=== PATIENT | male | born 1985 | race Caucasian/White ===

== ENCOUNTER 2016-08-24 21:05 | Emergency (ER) | payer SELFPAY ==
[2016-08-24 21:44] VITALS: BP 153/99; PULSE 96; TEMP 97.8; BMI 52.0
[2016-08-24] MEDS ORDERED: ALBUTEROL SO4 2.5/IPRATROPIUM 0.5 INH SOL 3 ML VIAL.NEB. NEB ONE ×2 (22:14→23:07)
--- NOTE | 2016-08-24 22:14 | PDOC ---
History of Present Illness - General Chief Complaint: Respiratory Stated Complaint: SHORTNESS OF BREATH Time Seen by Provider: 08/24/16 22:12 History Source: Patient Exam Limitations: No Limitations - History of Present Illness Timing/Duration: reports: this morning Possible Cause: Yes: no prior episodes Past History - Travel Traveled outside of the country in the last 30 days: No Close contact w/someone who was outside of country & ill: No - Past Medical History Allergies/Adverse Reactions: Allergies Allergy/AdvReac Type Severity Reaction Status Date / Time No Known Allergies Allergy Unverified 08/24/16 21:40 Home Medications: Ambulatory Orders Azithromycin [Zithromax -] 250 mg PO UTDICT #6 tab 08/25/16 Ibuprofen 800 mg PO TID #30 tablet 08/25/16 Promethazine/Phenyleph/Codeine [Phenergan VC+Codeine Syrup] 5 ml PO TID #60 ml MDD 20 08/25/16 Pseudoephedrine HCl [Sudafed] 30 mg PO Q6H #30 tablet 08/25/16 Other medical history: denies - Immunization History Immunization Up to Date: Yes - Psycho/Social/Smoking Cessation Hx Suicidal Ideation: No Smoking History: Current some day smoker Number of Cigarettes Smoked Daily: 4 Information on smoking cessation initiated: No Hx Alcohol Use: No Drug/Substance Use Hx: No Substance Use Type: None Review of Systems - Review of Systems Able to Perform ROS?: Yes Comments:: 08/24/16 22:13 CONSTITUTIONAL: Absent: fever, chills, diaphoresis, generalized weakness, malaise, loss of appetite HEENT: +Sore throat Absent: rhinorrhea, nasal congestion, throat swelling, difficulty swallowing, mouth swelling, ear pain, eye pain, visual Changes CARDIOVASCULAR: Absent: chest pain, loss of consciousness, palpitations, irregular heart rate, peripheral edema RESPIRATORY: Absent: cough, shortness of breath, dyspnea with exertion, orthopnea, wheezing, stridor, hemoptysis GASTROINTESTINAL: Absent: abdominal pain, abdominal distension, nausea, vomiting, diarrhea, constipation, melena, hematochezia GENITOURINARY: Absent: dysuria, frequency, urgency, hesitancy, hematuria, flank pain, genital pain MUSCULOSKELETAL: Absent: myalgia, arthralgia, joint swelling SKIN: Absent: rash, itching, pallor HEMATOLOGIC/IMMUNOLOGIC: Absent: easy bleeding, easy bruising, lymphadenopathy, frequent infections ENDOCRINE: Absent: unexplained weight gain, unexplained weight loss, heat intolerance, cold intolerance NEUROLOGIC: Absent: headache, focal weakness or paresthesias, dizziness, unsteady gait, seizure, mental status changes, bladder or bowel incontinence PSYCHIATRIC: Absent: anxiety, depression, suicidal or homicidal ideation, hallucinations. Is the patient limited [place] proficient: No *Physical Exam - Vital Signs Last Vital Signs Temp Pulse Resp BP Pulse Ox 97.8 F 96 H 24 153/99 96 08/24/16 21:41 08/24/16 21:41 08/24/16 21:41 08/24/16 21:41 08/24/16 21:41 - Physical Exam Comments: 08/24/16 22:14 GENERAL: Well developed, well nourished. Awake and alert. No acute distress. HEENT: Normocephalic, atraumatic. PERRLA, EOMI. No conjunctival pallor. Sclera are non- icteric. Moist mucous membranes. Oropharynx is clear. NECK: Supple. Full ROM. No JVD. Carotid pulses 2+ and symmetric, without bruits. No thyromegaly. No lymphadenopathy. CARDIOVASCULAR: Regular rate and rhythm. No murmurs, rubs, or gallops. Distal pulses are 2+ and symmetric. PULMONARY: No evidence of respiratory distress. Lungs clear to auscultation bilaterally. No wheezing, rales or rhonchi. ABDOMINAL: Soft. Non-tender. Non-distended. No rebound or guarding. No organomegaly. Normoactive bowel sounds. MUSCULOSKELETAL Normal range of motion at all joints. No bony deformities or tenderness. No CVA tenderness. EXTREMITIES: No cyanosis. No clubbing. No edema. No calf tenderness. SKIN: Warm and dry. Normal capillary refill. No rashes. No jaundice. NEUROLOGICAL: Alert, awake, appropriate. Cranial nerves 2-12 intact. No deficits to light touch and temperature in face, upper extremities and lower extremities. No motor deficits in the in face, upper extremities and lower extremities. Normoreflexic in the upper and lower extremities. Normal speech. Toes are down- going bilaterally. Gait is normal without ataxia. PSYCHIATRIC: Cooperative. Good eye contact. Appropriate mood and affect. *DC/Admit/Observation/Transfer Diagnosis at time of Disposition: Upper respiratory infection - Discharge Dispostion Disposition: HOME Condition at time of disposition: Good - Prescriptions Prescriptions: Ibuprofen 800 mg PO TID #30 tablet Promethazine/Phenyleph/Codeine [Phenergan VC+Codeine Syrup] 5 ml PO TID #60 ml MDD 20 Pseudoephedrine HCl [Sudafed] 30 mg PO Q6H #30 tablet Azithromycin [Zithromax -] 250 mg PO UTDICT #6 tab - Patient Instructions Printed Discharge Instructions: DI for Viral Upper Respiratory Infection -- Adult - Post Discharge Activity Work/School Note: Back to Work
--- NOTE | 2016-08-24 22:42 | PDOC ---
*Physical Exam - Vital Signs Last Vital Signs Temp Pulse Resp BP Pulse Ox 97.8 F 96 H 24 153/99 96 08/24/16 21:41 08/24/16 21:41 08/24/16 21:41 08/24/16 21:41 08/24/16 21:41 Medical Decision Making - Medical Decision Making 08/24/16 22:41 agree with care from [facility] *DC/Admit/Observation/Transfer Diagnosis at time of Disposition: Upper respiratory infection Qualifiers: URI type: unspecified URI Qualified Code(s): J06.9 - Acute upper respiratory infection, unspecified - Discharge Dispostion Disposition: HOME Condition at time of disposition: Stable Admit: No - Patient Instructions Printed Discharge Instructions: DI for Viral Upper Respiratory Infection -- Adult - Post Discharge Activity Work/School Note: Back to Work
[2016-08-25] MEDS ORDERED: PSEUDOEPHEDRINE HCL 30 MG TABLET PO STA (01:37)
[2016-08-25] MEDS ORDERED: AZITHROMYCIN 250 MG TABLET (FP) PO STA (01:37)
[2016-08-25] MEDS ORDERED: IBUPROFEN 400 MG TABLET (FP) PO ONE ×2 (01:38→01:43)
[2016-08-25] MEDS ORDERED: PSEUDOEPHEDRINE HCL 60 MG TABLET ONE (01:42)
[2016-08-25] MEDS ORDERED: AZITHROMYCIN 250 MG TABLET (FP) ONE (01:43)
== END 2016-08-25 02:16 | disposition home or self-care (01) ==
LOC: JER 21:05 → JERFT 21:05 → JER 08-25 02:16
PROC: 3E0F7GC Introduction of Other Therapeutic Substance into Respiratory Tract, Via Natural or Artificial Opening (ICD-10-PCS; principal; 2016-08-24)
DX: J06.9 Acute upper respiratory infection, unspecified (principal); B97.89 Other viral agents as the cause of diseases classified elsewhere
CPT/HCPCS: 71020-TC; 87070; 87430; 99281-25

== ENCOUNTER 2016-11-06 04:55 | Emergency (ER) | payer SELFPAY ==
[2016-11-06 05:23] VITALS: BP 133/95; PULSE 124; TEMP 97.6; BMI 51.6
[2016-11-06] MEDS ORDERED: PENICILLIN V POTASSIUM 500 MG TABLET PO ONE (05:31)
[2016-11-06] MEDS ORDERED: TETANUS AND DIPHTHERIA TOXOID 0.5 ML DISP.SYRIN IM ONE (05:31)
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
[2016-11-06] MEDS ORDERED: OXYCODONE/APAP 5/325MG COMBO TABLET PO ONE (06:01)
[2016-11-06] MEDS ORDERED: OXYCODONE/APAP 5/325MG COMBO TABLET ONE (06:06)
== END 2016-11-06 06:11 | disposition home or self-care (01) ==
LOC: JER 04:55
PROC: 0CQ0XZZ Repair Upper Lip, External Approach (ICD-10-PCS; principal; 2016-11-06)
PROC: 3E0234Z Introduction of Serum, Toxoid and Vaccine into Muscle, Percutaneous Approach (ICD-10-PCS; 2016-11-06)
DX: S01.521A Laceration with foreign body of lip, initial encounter (principal); Y04.2XXA Assault by strike against or bumped into by another person, initial encounter; Y93.89 Activity, other specified; Y92.89 Other specified places as the place of occurrence of the external cause; Y99.8 Other external cause status; Y07.9 Unspecified perpetrator of maltreatment and neglect
CPT/HCPCS: 99283-25

== ENCOUNTER 2016-11-13 11:40 | Emergency (ER) | payer SELFPAY ==
[2016-11-13 11:43] VITALS: BP 133/75; PULSE 105; TEMP 98.3; BMI 51.6
--- NOTE | 2016-11-13 12:06 | PDOC ---
Suture Removal/Wound Check HPI - History of Present Illness Chief Complaint: Suture/Staple Removal(Here) Stated Complaint: SUTURE REMOVAL Time Seen by Provider: 11/13/16 11:59 History Source: Yes: Patient Exam Limitations: Yes: No Limitations [facility] Date of Last ED visit: 11/06/16 - Previous ED Treatment Type of procedure performed on last visit: Yes: Laceration Repair Tetanus Immunization: Yes: Up to Date Antibiotics Prescribed: Yes Past History - Past Medical History Allergies/Adverse Reactions: Allergies No Known Allergies Allergy (Verified 11/13/16 11:40) Home Medications: Ambulatory Orders NK [No Known Home Medication] 11/06/16 Oxycodone HCl/Acetaminophen [Percocet 5-325 mg Tablet] 1 - 2 tab PO Q6H #20 tablet MDD 4 11/06/16 Penicillin V Potassium [Pen Vee K -] 500 mg PO TID #30 tablet 11/06/16 General: Yes: no pertinent history - Immunization History Immunizations Up to Date: Yes - Social History Smoking Status: Current some day smoker Number of Ciarettes Per Day: 2 Suture Removal/Wound Check PE - Physical Exam Laceration/Wound Check Symptoms: reports: None Comments: 11/13/16 12:08 left upper lip laceration well healed, 2 sutures intact *Review of Systems - Review of Systems Able to Perform ROS?: Yes Procedures - Additional Procedures Progress: 11/13/16 12:09 2 simple interrupted sutures removed, 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
== END 2016-11-13 12:14 | disposition home or self-care (01) ==
LOC: JERFT 11:40
DX: Z48.02 Encounter for removal of sutures (principal)
CPT/HCPCS: 99281-25

== ENCOUNTER 2017-07-05 02:49 | Emergency (ER) | payer SELFPAY ==
[2017-07-05 03:11] VITALS: BP 184/113; PULSE 110; TEMP 98; BMI 49.9
[2017-07-05] MEDS ORDERED: KETOROLAC TROMETHAMINE 30 MG/1 ML VIAL IM ONE (03:26)
--- NOTE | 2017-07-05 03:26 | PDOC ---
History of Present Illness - General Chief Complaint: Pain Stated Complaint: PAIN & SWELLING RIGHT KNEE Time Seen by Provider: 07/05/17 03:13 History Source: Patient - History of Present Illness Initial Comments: 07/05/17 03:44 31 year old morbidly obese male c/o right knee pain x 1 day with worsening pain and no relief with advil. reports 1 month ago feeling a pinch while walking down the stairs. patient is now worse and patient has noticed varicose veins. Past History - Past Medical History Allergies/Adverse Reactions: Allergies Allergy/AdvReac Type Severity Reaction Status Date / Time No Known Allergies Allergy Verified 07/05/17 03:08 Home Medications: Ambulatory Orders Ibuprofen 600 mg PO QID PRN #20 tablet 07/05/17 Oxycodone HCl/Acetaminophen [Percocet 5-325 mg Tablet] 1 - 2 tab PO Q6H PRN #10 tablet MDD 4 07/05/17 COPD: No Diabetes: Yes (BORDER LINE) - Immunization History Immunization Up to Date: Yes - Suicide/Smoking/Psychosocial Hx Smoking History: Current some day smoker Have you smoked in the past 12 months: Yes Number of Cigarettes Smoked Daily: 2 Information on smoking cessation initiated: No Hx Alcohol Use: No Drug/Substance Use Hx: No Substance Use Type: None Review of Systems - Review of Systems Able to Perform ROS?: Yes Is the patient limited [place] proficient: No Musculoskeletal: Yes: Joint Swelling (right knee) *Physical Exam - Vital Signs Last Vital Signs Temp Pulse Resp BP Pulse Ox 98 F 110 H 22 184/113 99 07/05/17 03:09 07/05/17 03:09 07/05/17 03:09 07/05/17 03:09 07/05/17 03:09 - Physical Exam General Appearance: Yes: Appropriately Dressed Respiratory/Chest: positive: Lungs Clear, Normal Breath Sounds Cardiovascular: positive: Regular Rhythm, Regular Rate Gastrointestinal/Abdominal: positive: Normal Bowel Sounds, Soft Musculoskeletal: positive: Other (right knee swollen with warmth to touch. limited ROM. uable to weight bear with paoj ) Extremity: positive: Other (+ pedal pulse) Integumentary: positive: Normal Color, Dry, Warm Progress Note - Progress Note Progress Note: Right knee pain P: pain management. xray: negative. official read pending *DC/Admit/Observation/Transfer Diagnosis at time of Disposition: Right knee pain Qualifiers: Chronicity: acute Qualified Code(s): M25.561 - Pain in right knee Joint effusion of knee Qualifiers: Laterality: right Qualified Code(s): M25.461 - Effusion, right knee - Discharge Dispostion Disposition: HOME - Prescriptions Prescriptions: Ibuprofen 600 mg PO QID PRN #20 tablet PRN Reason: Mild Pain Oxycodone HCl/Acetaminophen [Percocet 5-325 mg Tablet] 1 - 2 tab PO Q6H PRN #10 tablet MDD 4 PRN Reason: Moderate Pain - Referrals - Patient Instructions Printed Discharge Instructions: DI for Knee Pain Additional Instructions: follow up with orthopedic doctor as soon as possible. take ibuprofen every 6 hours as needed for pain take percocet every 6 hours as needed for severe pain - Post Discharge Activity Forms/Work/School Notes: Back to Work
[2017-07-05] MEDS ORDERED: KETOROLAC TROMETHAMINE 30 MG/1 ML VIAL ONE (03:28)
== END 2017-07-05 05:01 | disposition home or self-care (01) ==
LOC: JER 02:49
PROC: 3E0233Z Introduction of Anti-inflammatory into Muscle, Percutaneous Approach (ICD-10-PCS; principal; 2017-07-05)
DX: M25.461 Effusion, right knee (principal); E11.9 Type 2 diabetes mellitus without complications; E66.01 Morbid (severe) obesity due to excess calories; Z68.42 Body mass index [BMI] 45.0-49.9, adult; F17.210 Nicotine dependence, cigarettes, uncomplicated
CPT/HCPCS: 73560-TC-RT-FY; 99282-25

== ENCOUNTER 2019-03-22 09:28 | Inpatient (IN) | payer OTHER ==
[2019-03-22 10:07] VITALS: BMI 56.7
--- NOTE | 2019-03-22 10:41 | HP ---
CIWA Score Nausea/Vomitin-No Nausea/No Vomiting Muscle Tremors: 3 Anxiety: 3 Agitation: 4-Moderately Restless Paroxysmal Sweats: 1-Minimal Palms Moist Orientation: 2-Disoriented Date<2 days Tacttile Disturbances: 0-None Auditory Disturbances: 0-None Visual Disturbances: 0-None Headache: 0-None Present CIWA-Ar Total Score: 13 - Admission Criteria OASAS Guidelines: Admission for Medically Managed Detox: Requires at least one of the followin. CIWA greater than 12 2. Seizures within the past 24 hours 3. Delirium tremens within the past 24 hours 4. Hallucinations within the past 24 hours 5. Acute intervention needed for co occurring medical disorder 6. Acute intervention needed for co occurring psychiatric disorder 7. Severe withdrawal that cannot be handled at a lower level of care (continued vomiting, continued diarrhea, abnormal vital signs) requiring intravenous medication and/or fluids 8. Admitting History and Physical - Admission Chief Complaint: "I want to be here because I am 33 and alcohol shortens my life and says something about a man before someone says something. I am at the point of my life where I want to do something." History of Present Illness: 33 year old male due to alcohol dependence with withdrawals. He is drinking binge he 16 18 oz beers per day, or liter of [place]. He binged from Wednesday to Wednesday. Seen ER at [facility] on Wednesday due to alcohol intoxication, having cold sweats, shakes to the point of possible seizures, and given some librium which helped somewhat. However, he is still having withdrawal symptoms. Patient smokes ciggarettes too but quit cold turkey on Wednesday. He wishes to enter detox and then follow up with outpatient treatment. He took oxycodone 3 days for knee pain which he took from mother. PMH: Insomnia is secondary to withdrawal Psurg: Umbilical Herniorrhaphy 2016. Med: None All: None Patient has support systems in place once he completes detox. History Source: Patient Limitations to Obtaining History: No Limitations - Past Medical History Cardiovascular: Yes: HTN Additional Past Medical History: Obesity - Smoking History Smoking history: Former smoker Have you smoked in the past 12 months: No Aproximately how many cigarettes per day: 5 If you are a former smoker, when did you quit?: 03/10/2019 - Alcohol/Substance Use Hx Alcohol Use: Yes (binged for many days and suddenly stopped) Number of Drinks Daily: 10 Date of Last Use: 03/20/19 - Social History Usual Living Arrangement: Yes: Alone Do you think of yourself as: Straight/Heterosexual ADL: Independent Occupation: security History of Recent Travel: Yes Admission [facility] Allergies/Adverse Reactions: Allergies Allergy/AdvReac Type Severity Reaction Status Date / Time No Known Allergies Allergy Verified 03/22/19 09:53 - Ebola screening Have you traveled outside of the country in the last 21 days: No Have you had contact with anyone from an Ebola affected area: No Do you have a fever: No - Review of Systems Constitutional: Chills, Diaphoresis EENT: reports: No Symptoms Reported Respiratory: reports: No Symptoms reported Cardiac: reports: No Symptoms Reported GI: reports: No Symptoms Reported : reports: No Symptoms Reported Musculoskeletal: reports: No Symptoms Reported Integumentary: reports: No Symptoms Reported Neuro: reports: No Symptoms reported, Other (dementia unknown cause) Endocrine: reports: No Symptoms Reported Hematology: reports: No Symptoms Reported Psychiatric: reports: No Sypmtoms Reported, Judgement Intact, Mood/Affect Appropiate, Orientated x3 Other Systems: Reviewed and Negative Patient History - Patient Medical History Hx Anemia: No Hx Asthma: No Hx Chronic Obstructive Pulmonary Disease (COPD): No Hx Cancer: No Hx Cardiac Disorders: No Hx Congestive Heart Failure: No Hx Hypertension: Yes Hx Hypercholesterolemia: No Hx Pacemaker: No HX Cerebrovascular Accident: No Hx Seizures: No Hx Dementia: Yes (unknown cause familial) Hx Diabetes: Yes (BORDER LINE) Hx Gastrointestinal Disorders: No Hx Liver Disease: No Hx Genitourinary Disorders: No Hx Sexually Transmitted Disorders: No Hx Renal Disease (ESRD): No Hx Thyroid Disease: No Hx Human Immunodeficiency Virus (HIV): No Hx Hepatitis C: No Hx Depression: No Hx Suicide Attempt: No Hx Bipolar Disorder: No Hx Schizophrenia: No - Patient Surgical History Past Surgical History: No - PPD History Previous Implant?: Yes Documented Results: Negative w/o proof Implanted On Prior [facility] Admission?: Yes Date: 04/05/14 Results: negative PPD to be Administered?: Yes - Smoking Cessation Smoking history: Former smoker Have you smoked in the past 12 months: No Aproximately how many cigarettes per day: 5 If you are a former smoker, when did you quit?: 03/10/2019 Hx Chewing Tobacco Use: No Initiated information on smoking cessation: Yes 'Breaking Loose' booklet given: 03/22/19 - Substances abused Alcohol Other (specify): Was in [facility] being given librium for acute intoxication Substance route: Oral Frequency: Daily (most recently binged for many days straight prior to ER visit) Amount used: 16 bottles of 18oz Age of first use: 11 Date of last use: 03/18/19 Admission Physical Exam S - Vital Signs Vital Signs: Vital Signs - 24 hr 03/22/19 09:58 Temperature 98.4 F Pulse Rate 84 Respiratory 19 Rate Blood Pressure 143/94 - Physical General Appearance: Yes: Moderate Distress, Tremorous, Irritable, Sweating, Anxious HEENTM: Yes: EOMI, Normal ENT Inspection, Normocephalic, Normal Voice, SAGAR, Pharynx Normal, Tm's normal Respiratory: Yes: Chest Non-Tender, Lungs Clear, Normal Breath Sounds, No Respiratory Distress, No Accessory Muscle Use Neck: Yes: No masses,lesions,Nodules, Supple, Trachea in good position Breast: Yes: Within Normal Limits Cardiology: Yes: Regular Rhythm, S1, S2, Tachycardia Abdominal: Yes: Normal Bowel Sounds, Non Tender, Soft, Protuberent Genitourinary: Yes: Within Normal Limits Back: Yes: Normal Inspection Musculoskeletal: Yes: full range of Motion, Gait Steady, Pelvis Stable Extremities: Yes: Normal Capillary Refill, Normal Inspection, Normal Range of Motion, Non-Tender Neurological: Yes: financial reporting director II-XII NML intact, Fully Oriented, Alert, Motor Strength 5/5, Normal Mood/Affect, Normal Response Integumentary: Yes: Normal Color, Warm Lymphatic: Yes: Within Normal Limits - Diagnostic (1) Dementia associated with alcoholism Current Visit: Yes Status: Acute (2) Alcohol withdrawal Current Visit: Yes Status: Acute Qualifiers: Complication of substance-induced condition: uncomplicated Qualified Code(s ): F10.230 - Alcohol dependence with withdrawal, uncomplicated (3) Umbilical hernia Current Visit: No Status: Acute Qualifiers: Obstruction and gangrene presence: without obstruction or gangrene Qualified Code(s): K42.9 - Umbilical hernia without obstruction or gangrene (4) Obesity (BMI 30-39.9) Current Visit: Yes Status: Acute (5) Hypertension Current Visit: Yes Status: Acute Cleared for Admission [facility] - Detox or Rehab [facility] Level of Care: Medically Managed Detox Regimen/Protocol: Librium Claeared for Rehab Admission: No Screened but not Admitted - Documentation of Visit Screened but not Admitted: No Inpatient Rehab Admission - Rehab Decision to Admit Inpatient rehab admission?: No
[2019-03-22] MEDS ORDERED: MAGNESIUM CITRATE 300 ML BOTTLE PO PRN (10:51)
[2019-03-22] MEDS ORDERED: IBUPROFEN 400 MG TABLET (FP) PO PRN (10:51)
[2019-03-22] MEDS ORDERED: BISMUTH SUBSALICYLATE 262 MG/15 ML BTL PO PRN (10:51)
[2019-03-22] MEDS ORDERED: MAGNESIUM HYDROX 2400MG/30ML ORAL SUSPENSION 30 ML CUP PO PRN (10:51)
[2019-03-22] MEDS ORDERED: MENTHOL/PHENOL 1 EACH UD MM PRN (10:51)
[2019-03-22] MEDS ORDERED: ACETAMINOPHEN 325 MG TABLET (FP) PO PRN ×2 (10:51)
[2019-03-22] MEDS: chlordiazePOXIDE HCL 25 MG CAPSULE PO SCH ×3 (12:19→22:11)
[2019-03-22] MEDS: chlordiazePOXIDE HCL 25 MG CAPSULE PO PRN (13:56)
[2019-03-22] MEDS: hydrOXYzine PAMOATE 25 MG CAPSULE (FP) PO PRN (17:19)
[2019-03-22] MEDS: cloNIDine HCL 0.1 MG TABLET PO SCH (18:45)
[2019-03-22] MEDS: THIAMINE HCL 100 MG TABLET (FP) PO SCH (22:11)
[2019-03-22] MEDS: MELATONIN 5 MG TABLETS PO PRN (22:12)
[2019-03-22] MEDS: MAG HYDROX/AL HYDROX/SIMETH 30 ML UNIT-DOSE CUP PO PRN (23:14)
[2019-03-22] MEDS: SUVOREXANT 20 MG TABLET PO PRN (23:26)
[2019-03-23] MEDS: hydrOXYzine PAMOATE 25 MG CAPSULE (FP) PO PRN ×4 (00:50→22:15)
[2019-03-23] MEDS: METHOCARBAMOL 500 MG TABLET PO PRN ×2 (00:50→07:34)
[2019-03-23] MEDS: chlordiazePOXIDE HCL 25 MG CAPSULE PO PRN ×3 (00:51→18:47)
[2019-03-23] MEDS: chlordiazePOXIDE HCL 25 MG CAPSULE PO SCH ×4 (05:24→22:11)
[2019-03-23] MEDS: PRENATAL VITAMINS W/ FOLIC ACID TABLET (FP) PO SCH (10:35)
[2019-03-23] MEDS: NICOTINE 7 MG/24 HOURS TOPICAL PATCH TD SCH (10:35)
[2019-03-23] MEDS: cloNIDine HCL 0.1 MG TABLET PO SCH (10:36)
--- NOTE | 2019-03-23 11:02 | PN ---
S CIWA - CIWA Score Nausea/Vomitin-Mild Nausea/No Vomiting Muscle Tremors: 3 Anxiety: 2 Agitation: 3 Paroxysmal Sweats: 2 Orientation: 0-Oriented Tacttile Disturbances: 0-None Auditory Disturbances: 1-Very Mild Visual Disturbances: 0-None Headache: 0-None Present CIWA-Ar Total Score: 12 [facility] Progress Note (SOAP) Subjective: 33 years old male admitted on 03/22/19 for alcohol withdrawal sxs management treated with librium detox regimen requests to be seen by a psychiatrist due to taking zoloft for depression would like to resume zoloft Objective: 03/23/19 11:02 Vital Signs Temperature 96.6 F L 03/23/19 09:10 Pulse Rate 109 H 03/23/19 09:10 Respiratory Rate 18 03/23/19 09:10 Blood Pressure 133/73 03/23/19 09:10 O2 Sat by Pulse Oximetry (%) Assessment: 03/23/19 11:05 alcohol withdrawal sx Plan: continue librium detox regimen
[2019-03-23] MEDS: THIAMINE HCL 100 MG TABLET (FP) PO SCH (22:11)
[2019-03-23] MEDS: SUVOREXANT 20 MG TABLET PO PRN (22:12)
[2019-03-23] MEDS: MELATONIN 5 MG TABLETS PO PRN (22:16)
[2019-03-24] MEDS: hydrOXYzine PAMOATE 25 MG CAPSULE (FP) PO PRN (03:48)
[2019-03-24] MEDS: chlordiazePOXIDE HCL 25 MG CAPSULE PO SCH ×4 (06:22→22:15)
[2019-03-24] MEDS: NICOTINE 7 MG/24 HOURS TOPICAL PATCH TD SCH (10:20)
[2019-03-24] MEDS: PRENATAL VITAMINS W/ FOLIC ACID TABLET (FP) PO SCH (10:21)
[2019-03-24] MEDS: cloNIDine HCL 0.1 MG TABLET PO SCH (10:21)
--- NOTE | 2019-03-24 15:26 | PN ---
S CIWA - CIWA Score Nausea/Vomitin-Mild Nausea/No Vomiting Muscle Tremors: 1-None Visible, but [place] Anxiety: 2 Agitation: 2 Paroxysmal Sweats: No Perspiration Orientation: 0-Oriented Tacttile Disturbances: 1-Very Mild Itch/Numbness Auditory Disturbances: 0-None Visual Disturbances: 0-None Headache: 1-Very Mild CIWA-Ar Total Score: 8 BHS Progress Note (SOAP) Subjective: alert,irritable,anxious,interrupted sleep,tremor Objective: 03/24/19 15:25 Vital Signs Temperature 96.3 F L 03/24/19 13:22 Pulse Rate 92 H 03/24/19 13:22 Respiratory Rate 18 03/24/19 13:22 Blood Pressure 139/86 03/24/19 13:22 O2 Sat by Pulse Oximetry (%) labs pending Assessment: 03/24/19 15:25 withdrawal symptom Plan: continue detox librium regimen
[2019-03-24] MEDS: MAG HYDROX/AL HYDROX/SIMETH 30 ML UNIT-DOSE CUP PO PRN (15:45)
[2019-03-24] MEDS: SUVOREXANT 20 MG TABLET PO PRN (22:17)
[2019-03-24] MEDS: MELATONIN 5 MG TABLETS PO PRN (22:17)
[2019-03-24] MEDS: METHOCARBAMOL 500 MG TABLET PO PRN (22:17)
[2019-03-24] MEDS: THIAMINE HCL 100 MG TABLET (FP) PO SCH (22:17)
[2019-03-25] MEDS: MAG HYDROX/AL HYDROX/SIMETH 30 ML UNIT-DOSE CUP PO PRN ×2 (00:29→20:09)
[2019-03-25] MEDS: hydrOXYzine PAMOATE 25 MG CAPSULE (FP) PO PRN ×3 (01:41→17:48)
[2019-03-25] MEDS: chlordiazePOXIDE HCL 10 MG CAPSULE PO PRN ×3 (01:41→22:03)
[2019-03-25] MEDS: chlordiazePOXIDE HCL 10 MG CAPSULE PO SCH ×4 (06:43→22:01)
[2019-03-25] MEDS: METHOCARBAMOL 500 MG TABLET PO PRN (06:43)
[2019-03-25] MEDS: cloNIDine HCL 0.1 MG TABLET PO SCH (10:33)
[2019-03-25] MEDS: NICOTINE 7 MG/24 HOURS TOPICAL PATCH TD SCH (10:34)
[2019-03-25] MEDS: PRENATAL VITAMINS W/ FOLIC ACID TABLET (FP) PO SCH (10:34)
--- NOTE | 2019-03-25 13:41 | PN ---
BHS CIWA - CIWA Score Nausea/Vomitin-No Nausea/No Vomiting Muscle Tremors: None Anxiety: 2 Agitation: 0-Normal Activity Paroxysmal Sweats: 3 Orientation: 0-Oriented Tacttile Disturbances: 0-None Auditory Disturbances: 0-None Visual Disturbances: 0-None Headache: 1-Very Mild CIWA-Ar Total Score: 6 BHS Progress Note (SOAP) Subjective: c/o headache, anxiety, and sweats. Objective: 03/25/19 13:41 Vital Signs 03/25/19 03/25/19 03/25/19 06:17 08:04 09:40 Temperature 96.2 F L 96.4 F L Pulse Rate 93 H 93 H 95 H Respiratory 20 18 Rate Blood Pressure 165/95 159/96 161/99 03/25/19 13:20 Temperature 97.3 F L Pulse Rate 87 Respiratory 18 Rate Blood Pressure 160/99 Assessment: 03/25/19 13:41 AOX3, in no acute respiratory distress. Full rom, ambulating in the unit. Withdrawal symptoms. Plan: continue detox.
[2019-03-25] MEDS: MELATONIN 5 MG TABLETS PO PRN (22:01)
[2019-03-25] MEDS: THIAMINE HCL 100 MG TABLET (FP) PO SCH (22:01)
[2019-03-26] MEDS: METHOCARBAMOL 500 MG TABLET PO PRN ×2 (01:57→10:41)
[2019-03-26] MEDS: hydrOXYzine PAMOATE 25 MG CAPSULE (FP) PO PRN ×3 (01:57→23:10)
[2019-03-26] MEDS: chlordiazePOXIDE HCL 10 MG CAPSULE PO SCH ×2 (05:38→17:49)
[2019-03-26] MEDS: cloNIDine HCL 0.1 MG TABLET PO SCH (10:41)
[2019-03-26] MEDS: PRENATAL VITAMINS W/ FOLIC ACID TABLET (FP) PO SCH (10:41)
[2019-03-26] MEDS: NICOTINE 7 MG/24 HOURS TOPICAL PATCH TD SCH (10:41)
--- NOTE | 2019-03-26 14:12 | PN ---
S CIWA - CIWA Score Nausea/Vomitin-No Nausea/No Vomiting Muscle Tremors: 1-None Visible, but [place] Anxiety: 1-Mildly Anxious Agitation: 1-Slight > Activity Paroxysmal Sweats: No Perspiration Orientation: 0-Oriented Tacttile Disturbances: 0-None Auditory Disturbances: 0-None Visual Disturbances: 0-None Headache: 0-None Present CIWA-Ar Total Score: 3 BHS Progress Note (SOAP) Subjective: 33 years old male admitted on 03/22/19 for alcohol withdrawal sx management treated with libirum detox regimen feeling better less tremor sleep better at night Objective: 03/26/19 14:12 Vital Signs Temperature 99.0 F 03/26/19 13:13 Pulse Rate 98 H 03/26/19 13:13 Respiratory Rate 18 03/26/19 13:13 Blood Pressure 150/90 03/26/19 13:13 O2 Sat by Pulse Oximetry (%) 03/26/19 14:14 lab see ER 03/26/19 14:14 03/22/19 lab report 03/26/19 14:16 bp elevation add amlodipine Assessment: 03/26/19 14:16 alcohol withdrawal sx Plan: continue librium detox regimen
[2019-03-26] MEDS: amLODIPine BESYLATE 5 MG TABLET (FP) PO SCH (15:02)
[2019-03-26] MEDS: MELATONIN 5 MG TABLETS PO PRN (21:54)
[2019-03-26] MEDS: THIAMINE HCL 100 MG TABLET (FP) PO SCH (21:54)
[2019-03-27] MEDS ORDERED: chlordiazePOXIDE HCL 10 MG CAPSULE PO ONE (05:00)
[2019-03-27] MEDS: hydrOXYzine PAMOATE 25 MG CAPSULE (FP) PO PRN (05:57)
[2019-03-27] MEDS: cloNIDine HCL 0.1 MG TABLET PO SCH (10:27)
[2019-03-27] MEDS: PRENATAL VITAMINS W/ FOLIC ACID TABLET (FP) PO SCH (10:27)
[2019-03-27] MEDS: amLODIPine BESYLATE 5 MG TABLET (FP) PO SCH (10:27)
[2019-03-27] MEDS: NICOTINE 7 MG/24 HOURS TOPICAL PATCH TD SCH (10:28)
[2019-03-27 14:44] VITALS: BP 139/69; PULSE 94; TEMP 98.8
--- NOTE | 2019-03-27 15:44 | HP ---
[facility] Rehab Assess/Revision - Admission History Admitted to Rehab from: [facility] Date of Admission to Rehab: 03/27/19 - Vital signs Vital Signs: Vital Signs Period Temp Pulse Resp BP Sys/Cam Pulse Ox Last 24 Hr 96.5 F-98.8 F 71-101 18-20 124-160/69-102 - Findings Detox History & Physical reviewed: Yes Concur with findings: Yes Comments/Additional Findings: transferred from detox to rehab admission as per protocol Inpatient Rehab Admission - Rehab Decision to Admit Inpatient rehab admission?: Yes - Initial Determination Are CD services needed?: Yes Free of communicable disease: Yes Not in need of hospitalization: Yes - Rehab Admission Criteria Previous failed treatment: Yes Poor recovery environment: Yes Comorbidities: Yes Lacks judgement: Yes Patient is meeting Inpatient Rehab admission criteria:: Yes
--- NOTE | 2019-03-27 15:59 | DS ---
[facility] Rehab Discharge Summary - [facility] Rehab Discharge Summary Admission Date: 03/22/19 Discharge Date: 03/27/19 - History Present History: Alcohol dependence Additional Comments: Pt is a 33 y/o male who was transferred to rehab from [address] [place] [address] after completion. Pertinent Past History: HTN Umbilcal Hernia Knee pain Obesity - Discharge Physical Exam Vital Signs: Vital Signs Temperature 98.8 F 03/27/19 14:43 Pulse Rate 94 H 03/27/19 14:43 Respiratory Rate 20 03/27/19 14:43 Blood Pressure 139/69 03/27/19 14:43 O2 Sat by Pulse Oximetry (%) Alert o x 3,denies s/h/i nad Ambulating with steady gait. Pertinent Admission Physical Exam Findings: Unchanged status - Treatment Discharge Condition: Discharge condition good Hospital Course: Pt completed detox today and was transferred to rehab but declined to stay for personal family reasons. - Medication-Assisted Treatment (MAT) Medication-Assisted Treatment (MAT): No - Discharge Instructions Diet, activity, other medical instructions: Diet:JESUS Activity: oob ad kee Other medical instructions:follow up with primary care [facility] within 1 week after discharge. Follow up [facility]. - Diagnosis (1) Alcohol withdrawal Current Visit: Yes Status: Chronic Qualifiers: Complication of substance-induced condition: uncomplicated Qualified Code(s ): F10.230 - Alcohol dependence with withdrawal, uncomplicated (2) Hypertension Current Visit: Yes Status: Chronic Qualifiers: Hypertension type: essential hypertension Qualified Code(s): I10 - Essential (primary) hypertension (3) Obesity (BMI 30-39.9) Current Visit: Yes Status: Chronic - Follow-up Referral Minutes to complete discharge: 10 - AMA Did Patient Leave Against Medical Advice: No Additional Comments: Pt requests to leave voluntarily immediately after coming to rehab unit without getting into his assigned room yet.
--- NOTE | 2019-03-27 16:30 | PN ---
S Progress Note Note: received 5n nurse called that the patient refuses to stay in rehab amlodipine sent to preferred pharmacy strong recommend weight loss low salt diet and follow up with primary care provider recommend community health services such as mini clinic and pharmacy for bp monitoring risks of uncontrolled bp
== END 2019-03-27 16:15 | disposition home or self-care (01) | DRG 895 ==
LOC: YASAS 09:28 → Y3N 11:12 → Y5N 03-27 15:21
PROVIDERS: ADMIT Allergy & Immunology; ATTEND Neuromusculoskeletal Medicine & OMM
PROC: HZ42ZZZ Group Counseling for Substance Abuse Treatment, Cognitive-Behavioral (ICD-10-PCS; principal; 2019-03-22)
DX: F10.20 Alcohol dependence, uncomplicated (principal); Z68.43 Body mass index [BMI] 50.0-59.9, adult; I10 Essential (primary) hypertension; E11.9 Type 2 diabetes mellitus without complications; K42.9 Umbilical hernia without obstruction or gangrene; F10.27 Alcohol dependence with alcohol-induced persisting dementia; M25.561 Pain in right knee; Z87.891 Personal history of nicotine dependence; E66.01 Morbid (severe) obesity due to excess calories
CPT/HCPCS: 36415; 80053; 80307; 85027; 86593; 93005; 93010; 99284-25; J0735

== ENCOUNTER 2023-02-15 18:27 | Inpatient (IN) | payer OTHER ==
[2023-02-15] MEDS ORDERED: ALBUTEROL SO4 2.5/IPRATROPIUM 0.5 INH SOL 3 ML VIAL.NEB. NEB ONE ×3 (18:37→19:50)
[2023-02-15] MEDS ORDERED: methylPREDNISolone NA SUCC 125 MG/2 ML VIAL ONE (18:37)
[2023-02-15] MEDS ORDERED: VANCOMYCIN 1,000 MG in DEXTROSE 5%-WATER - 250 ML IVPB ONE (18:42)
[2023-02-15] MEDS ORDERED: PIPERACILLIN/TAZOB 4.5 GM 4.5 GM in DEXTROSE 5%-WATER 100 ML IVPB ONE (18:42)
[2023-02-15] MEDS ORDERED: AZITHROMYCIN IVPB 500 MG in DEXTROSE 5%-WATER - 250 ML IVPB ONE (18:53)
[2023-02-15] MEDS ORDERED: CEFTRIAXONE 1 GM in DEXTROSE 5%-WATER - 100 ML IVPB ONE (18:56)
[2023-02-15 18:59] LABS: VENOUS BASE EXCESS 3.9 mmol/L (-2-2); VENOUS O2 SATURATION 80.8 % (70-80); VENOUS PCO2 68.5 mmHg (38-52); VENOUS PH 7.297 (7.310-7.410)
[2023-02-15 19:02] LABS: BASO % 0.7 % (0-2.0); EOS % 3.2 % (0-4.5); HEMATOCRIT 41.3 % (35.4-49); LYMPH % 16.5 % (8-40); MEAN CELL VOLUME 88.1 fl (80-96); MEAN PLT VOLUME 7.3 fl (7.5-11.1); MONO % 6.6 % (3.8-10.2); PLATELET COUNT 324 10^3/uL (134-434); RBC 4.69 M/mm3 (4.00-5.60); RDW 16.6 % (11.9-15.9); WHITE BLOOD COUNT 10.1 K/mm3 (4.0-10.0)
[2023-02-15] MEDS ORDERED: CEFTRIAXONE 1 GM/50 ML BAG ONE (19:03)
[2023-02-15] MEDS ORDERED: AZITHROMYCIN IVPB 500 MG/250 ML BAG IVPB ONE (19:03)
[2023-02-15 19:09] LABS: INR 0.97 (0.83-1.09); PROTHROMBIN TIME (PATIENT) 11.2 SEC (9.7-13.0)
[2023-02-15 19:11] LABS: ACTIVATED PTT 27.7 SECONDS (25.2-36.5)
[2023-02-15 19:20] LABS: CHLORIDE 99 mmol/L (98-107); SODIUM 135 mmol/L (136-145)
[2023-02-15 19:23] LABS: ALBUMIN 3.1 g/dl (3.4-5.0); BLOOD UREA NITROGEN 14.6 mg/dL (7-18); CALCIUM 8.2 mg/dL (8.5-10.1); CO2 34 mmol/L (21-32)
[2023-02-15 19:24] LABS: GLUCOSE,RANDOM 136 mg/dL (74-106)
[2023-02-15 19:27] LABS: BILIRUBIN,TOTAL 0.2 mg/dL (0.2-1); SGOT/AST 130 U/L (15-37); TOT PROT 8.4 g/dl (6.4-8.2)
[2023-02-15 19:29] LABS: ALK PHOS 78 U/L (45-117)
[2023-02-15 19:31] LABS: N-TERMINAL BNP 171.7 pg/ml (5-125)
[2023-02-15 19:32] LABS: ANION GAP 2 MMOL/L (8-16); POTASSIUM 6.9 mmol/L (3.5-5.1); SGPT/ALT 127 U/L (13-61)
[2023-02-15 20:09] LABS: POTASSIUM 4.1 mmol/L (3.5-5.1)
[2023-02-15 20:11] LABS: ALBUMIN 3.1 g/dl (3.4-5.0); BLOOD UREA NITROGEN 14.2 mg/dL (7-18); CALCIUM 8.4 mg/dL (8.5-10.1)
[2023-02-15 20:15] LABS: CREATININE 0.9 mg/dL (0.55-1.3)
[2023-02-15 20:16] LABS: BILIRUBIN,TOTAL 0.3 mg/dL (0.2-1); TOT PROT 7.6 g/dl (6.4-8.2)
[2023-02-15] MEDS ORDERED: HEPARIN INFUSION - 25,000 UNITS/500 ML INFUS.BAG IVPB ONE (22:08)
[2023-02-15] MEDS ORDERED: HEPARIN INFUSION - 25,000 UNITS/500 ML INFUS.BAG IVPB SCH (22:15)
[2023-02-15] MEDS ORDERED: hydrALAZINE HCL 20 MG/ML VIAL IVPUSH PRN (23:43)
[2023-02-15] MEDS ORDERED: ALBUTEROL SO4 2.5/IPRATROPIUM 0.5 INH SOL 3 ML VIAL.NEB. NEB SCH (23:45)
[2023-02-16] MEDS ORDERED: methylPREDNISolone NA SUCC 40 MG/1 ML VIAL ONE ×3 (00:01→09:57)
[2023-02-16] MEDS ORDERED: hydrALAZINE HCL 20 MG/ML VIAL ONE ×2 (00:01→03:58)
[2023-02-16] MEDS: methylPREDNISolone NA SUCC 40 MG/1 ML VIAL IVPUSH SCH ×3 (00:07→10:00)
[2023-02-16] MEDS ORDERED: morphine SULFATE 4 MG/ML VIAL IVPUSH STA (00:07)
[2023-02-16 00:35] LABS: EPI CELLS 16 /uL (0-25.1); HYALINE CASTS 1 /uL (0-3.1); PH,URINE 5.5 (5.0-8.0); URINE APPEARANCE CLEAR; URINE BACTERIA 8 /uL (0-1359); URINE BILIRUBIN NEGATIVE (NEGATIVE); URINE COLOR YELLOW; URINE GLUCOSE (UA) NEGATIVE (NEGATIVE); URINE KETONE NEGATIVE (NEGATIVE); URINE LEUK ESTERASE NEGATIVE (NEGATIVE); URINE NITRITE NEGATIVE (NEGATIVE); URINE PROTEIN 2+ (NEGATIVE); URINE RBC 18 /uL (0-23.9); URINE WBC 12 /uL (0-25.8)
[2023-02-16] MEDS ORDERED: hydrALAZINE HCL 20 MG/ML VIAL IVPUSH PRN (03:53)
[2023-02-16] MEDS ORDERED: HEPARIN NA (PORCINE) 5,000 UNITS/ML 1ML VIAL ONE ×2 (05:23→13:19)
[2023-02-16] MEDS ORDERED: morphine CARPU-JECT 8 MG/1 ML DISP.SYRIN IVPUSH ONE (06:36)
[2023-02-16 07:42] LABS: BASO % 0.3 % (0-2.0); EOS % 0.1 % (0-4.5); HEMATOCRIT 40.6 % (35.4-49); HEMOGLOBIN 13.3 GM/dL (11.7-16.9); LYMPH % 7.5 % (8-40); MCH 29.6 pg (25.7-33.7); MCHC 32.7 g/dl (32.0-35.9); MEAN CELL VOLUME 90.4 fl (80-96); MEAN PLT VOLUME 7.6 fl (7.5-11.1); MONO % 2.2 % (3.8-10.2); NEUT % 89.9 % (42.8-82.8); PLATELET COUNT 334 10^3/uL (134-434); RBC 4.49 M/mm3 (4.00-5.60); RDW 15.9 % (11.9-15.9); WHITE BLOOD COUNT 10.8 K/mm3 (4.0-10.0)
[2023-02-16 08:06] LABS: POTASSIUM 4.3 mmol/L (3.5-5.1)
[2023-02-16 08:08] LABS: CALCIUM 7.9 mg/dL (8.5-10.1)
[2023-02-16 08:10] LABS: ALBUMIN 3.1 g/dl (3.4-5.0); BLOOD UREA NITROGEN 14.3 mg/dL (7-18); MAGNESIUM 1.8 mg/dL (1.8-2.4)
[2023-02-16 08:12] LABS: PHOSPHOROUS 2.5 mg/dL (2.5-4.9)
[2023-02-16 08:13] LABS: TOT PROT 7.8 g/dl (6.4-8.2)
[2023-02-16 08:15] LABS: BILIRUBIN,TOTAL 0.2 mg/dL (0.2-1)
[2023-02-16] MEDS: INSULIN SLIDING SCALE (NOVOLOG) 1 VIAL SQ SCH ×4 (09:53→21:29)
[2023-02-16] MEDS ORDERED: LOSARTAN 50MG/HCTZ 12.5MG 1 TAB PO SCH (10:00)
[2023-02-16] MEDS ORDERED: NIFEdipine E.R. 30 MG TABLET PO SCH (10:00)
[2023-02-16] MEDS ORDERED: methylPREDNISolone NA SUCC 40 MG/1 ML VIAL IVPUSH SCH (18:00)
[2023-02-16] MEDS ORDERED: morphine CARPU-JECT 2 MG/1 ML DISP.SYRIN IVPUSH STA (18:03)
[2023-02-16] MEDS ORDERED: KETOROLAC TROMETHAMINE 10 MG TABLET PO PRN ×2 (18:30→20:53)
[2023-02-16 18:44] LABS: ARTERIAL BLD GAS O2 SATURATION 95.2 % (95-98); ARTERIAL BLOOD GAS BASE EXCESS 9.4 mmol/L (-2-2); ARTERIAL BLOOD GAS pH 7.299 (7.350-7.450)
[2023-02-16] MEDS ORDERED: AZITHROMYCIN IVPB 500 MG/250 ML BAG IVPB SCH (19:30)
[2023-02-16] MEDS ORDERED: FUROSEMIDE 40 MG/4 ML INJECTABLE VIAL IVPUSH ONE (20:39)
[2023-02-16] MEDS: HEPARIN INFUSION - 25,000 UNITS/500 ML INFUS.BAG IVPB SCH ×2 (20:53→21:38)
[2023-02-16] MEDS ORDERED: HEPARIN NA (PORCINE) 5,000 UNITS/ML 1ML VIAL IVPUSH PRN (20:53)
[2023-02-16] MEDS: MUPIROCIN 2% TOPICAL OINTMENT FOR DECOLONIZATION NS SCH (20:59)
[2023-02-16] MEDS ORDERED: ACETAMINOPHEN 325 MG TABLET (FP) ONE (21:04)
[2023-02-16 21:25] LABS: ARTERIAL BLD GAS O2 SATURATION 92.8 % (95-98); ARTERIAL BLOOD GAS BASE EXCESS 5.6 mmol/L (-2-2); ARTERIAL BLOOD GAS PO2 79.3 mmHg (80-100); ARTERIAL BLOOD GAS pH 7.236 (7.350-7.450)
[2023-02-16 21:28] LABS: ALLENS TEST POSITIVE
[2023-02-16 21:29] LABS: VENT MODE S/T; VENT RATE 14
[2023-02-16] MEDS: CHLORHEXIDINE GLUCONATE 4% CLEANSER FOR DECOLONIZATION TP SCH (21:29)
[2023-02-16] MEDS: CEFTRIAXONE 1 GM in DEXTROSE 5%-WATER - 50 ML IVPB SCH (21:46)
[2023-02-16] MEDS: HEPARIN NA (PORCINE) 5,000 UNITS/ML 1ML VIAL IVPUSH PRN (21:47)
[2023-02-16] MEDS ORDERED: CEFTRIAXONE 1 GM in DEXTROSE 5%-WATER - 50 ML IVPB SCH (22:00)
[2023-02-16] MEDS ORDERED: ALBUTEROL SO4 2.5/IPRATROPIUM 0.5 INH SOL 3 ML VIAL.NEB. NEB SCH (23:53)
[2023-02-16] MEDS: ALBUTEROL SO4 2.5/IPRATROPIUM 0.5 INH SOL 3 ML VIAL.NEB. NEB SCH (23:55)
[2023-02-17 00:21] LABS: ARTERIAL BLD GAS O2 SATURATION 97.6 % (95-98); ARTERIAL BLOOD GAS BASE EXCESS 3.8 mmol/L (-2-2); ARTERIAL BLOOD GAS PO2 123.5 mmHg (80-100); ARTERIAL BLOOD GAS pH 7.226 (7.350-7.450)
[2023-02-17] MEDS: methylPREDNISolone NA SUCC 40 MG/1 ML VIAL IVPUSH SCH ×3 (02:52→17:02)
[2023-02-17] MEDS: HEPARIN NA (PORCINE) 5,000 UNITS/ML 1ML VIAL IVPUSH PRN (03:17)
[2023-02-17 05:27] LABS: ARTERIAL BLD GAS O2 SATURATION 96.1 % (95-98); ARTERIAL BLOOD GAS BASE EXCESS 8.5 mmol/L (-2-2); ARTERIAL BLOOD GAS PO2 94.8 mmHg (80-100); ARTERIAL BLOOD GAS pH 7.289 (7.350-7.450)
[2023-02-17] MEDS: INSULIN SLIDING SCALE (NOVOLOG) 1 VIAL SQ SCH ×4 (06:38→22:18)
[2023-02-17 07:04] LABS: BASO % 0.3 % (0-2.0); EOS % 0.1 % (0-4.5); HEMATOCRIT 40.3 % (35.4-49); HEMOGLOBIN 13.2 GM/dL (11.7-16.9); LYMPH % 9.4 % (8-40); MCH 29.4 pg (25.7-33.7); MCHC 32.7 g/dl (32.0-35.9); MEAN CELL VOLUME 89.9 fl (80-96); MEAN PLT VOLUME 7.3 fl (7.5-11.1); MONO % 4.6 % (3.8-10.2); NEUT % 85.6 % (42.8-82.8); PLATELET COUNT 330 10^3/uL (134-434); RBC 4.48 M/mm3 (4.00-5.60); RDW 16.3 % (11.9-15.9); WHITE BLOOD COUNT 9.5 K/mm3 (4.0-10.0)
[2023-02-17] MEDS ORDERED: ACETAMINOPHEN 1000 MG/100 ML BAG IVPB PRN (07:20)
[2023-02-17 07:21] LABS: POTASSIUM 4.5 mmol/L (3.5-5.1)
[2023-02-17 07:22] LABS: INR 1.02 (0.83-1.09); PROTHROMBIN TIME (PATIENT) 11.8 SEC (9.7-13.0)
[2023-02-17 07:23] LABS: CALCIUM 7.9 mg/dL (8.5-10.1)
[2023-02-17 07:25] LABS: BLOOD UREA NITROGEN 13.6 mg/dL (7-18); MAGNESIUM 2.2 mg/dL (1.8-2.4)
[2023-02-17 07:28] LABS: CREATININE 0.7 mg/dL (0.55-1.3)
[2023-02-17 07:29] LABS: BILIRUBIN,TOTAL 0.2 mg/dL (0.2-1); TOT PROT 7.3 g/dl (6.4-8.2)
[2023-02-17] MEDS ORDERED: ACETAMINOPHEN INJECTION 100 ML IVPB ONE (07:40)
[2023-02-17] MEDS: ACETAMINOPHEN 1000 MG/100 ML BAG IVPB PRN ×3 (07:50→21:18)
[2023-02-17] MEDS: ALBUTEROL SO4 2.5/IPRATROPIUM 0.5 INH SOL 3 ML VIAL.NEB. NEB SCH ×4 (08:33→20:34)
[2023-02-17] MEDS: ENOXAPARIN NA (PORCINE) 40 MG/0.4 ML DISP.SYRIN SQ SCH ×2 (09:53→21:25)
[2023-02-17] MEDS: LOSARTAN 50MG/HCTZ 12.5MG 1 TAB PO SCH (09:54)
[2023-02-17] MEDS: MUPIROCIN 2% TOPICAL OINTMENT FOR DECOLONIZATION NS SCH ×2 (09:54→21:25)
[2023-02-17] MEDS: NIFEdipine E.R. 30 MG TABLET PO SCH (09:54)
[2023-02-17] MEDS ORDERED: INSULIN (NOVOLOG) ASPART 100 UNITS/ML 10ML VIAL ONE (10:21)
[2023-02-17] MEDS: AZITHROMYCIN IVPB 250 MG in DEXTROSE 5%-WATER - 250 ML IVPB SCH (15:06)
[2023-02-17] MEDS: KETOROLAC TROMETHAMINE 30 MG/1 ML VIAL IVPUSH PRN ×2 (15:06→22:15)
[2023-02-17 15:32] VITALS: BMI 70.3
[2023-02-17] MEDS ORDERED: AZITHROMYCIN IVPB 500 MG/250 ML BAG IVPB SCH (19:30)
[2023-02-17] MEDS: CHLORHEXIDINE GLUCONATE 4% CLEANSER FOR DECOLONIZATION TP SCH (21:25)
[2023-02-17] MEDS: CEFTRIAXONE 1 GM in DEXTROSE 5%-WATER - 50 ML IVPB SCH (21:25)
[2023-02-18] MEDS: hydrALAZINE HCL 20 MG/ML VIAL IVPUSH PRN ×2 (00:13→16:55)
[2023-02-18] MEDS: methylPREDNISolone NA SUCC 40 MG/1 ML VIAL IVPUSH SCH ×3 (01:03→16:59)
[2023-02-18] MEDS: INSULIN SLIDING SCALE (NOVOLOG) 1 VIAL SQ SCH ×4 (06:10→22:27)
[2023-02-18] MEDS: KETOROLAC TROMETHAMINE 30 MG/1 ML VIAL IVPUSH PRN (06:13)
[2023-02-18 06:34] LABS: HEMATOCRIT 40.8 % (35.4-49); HEMOGLOBIN 13.1 GM/dL (11.7-16.9); MCHC 32.2 g/dl (32.0-35.9); MEAN PLT VOLUME 7.5 fl (7.5-11.1); PLATELET COUNT 364 10^3/uL (134-434); RBC 4.53 M/mm3 (4.00-5.60); RDW 16.4 % (11.9-15.9); WHITE BLOOD COUNT 12.7 K/mm3 (4.0-10.0)
[2023-02-18 07:26] LABS: POTASSIUM 4.9 mmol/L (3.5-5.1)
[2023-02-18 07:29] LABS: CALCIUM 8.1 mg/dL (8.5-10.1)
[2023-02-18 07:30] LABS: BLOOD UREA NITROGEN 24.2 mg/dL (7-18); MAGNESIUM 2.2 mg/dL (1.8-2.4)
[2023-02-18 07:33] LABS: PHOSPHOROUS 3.9 mg/dL (2.5-4.9)
[2023-02-18 07:34] LABS: BILIRUBIN,TOTAL 0.5 mg/dL (0.2-1)
[2023-02-18 07:35] LABS: TOT PROT 7.4 g/dl (6.4-8.2)
[2023-02-18] MEDS: ALBUTEROL SO4 2.5/IPRATROPIUM 0.5 INH SOL 3 ML VIAL.NEB. NEB SCH ×4 (07:57→20:14)
[2023-02-18] MEDS: NIFEdipine E.R. 30 MG TABLET PO SCH (09:08)
[2023-02-18] MEDS: MUPIROCIN 2% TOPICAL OINTMENT FOR DECOLONIZATION NS SCH ×2 (09:09→22:25)
[2023-02-18] MEDS: ENOXAPARIN NA (PORCINE) 40 MG/0.4 ML DISP.SYRIN SQ SCH ×2 (09:09→22:25)
[2023-02-18] MEDS: LOSARTAN 50MG/HCTZ 12.5MG 1 TAB PO SCH (09:09)
[2023-02-18] MEDS: AZITHROMYCIN IVPB 250 MG in DEXTROSE 5%-WATER - 250 ML IVPB SCH (09:17)
[2023-02-18] MEDS ORDERED: LIDOCAINE 4% PATCH TP ONE (11:00)
[2023-02-18] MEDS: CYCLOBENZAPRINE HCL 10 MG TABLET (FP) PO SCH ×2 (11:27→22:25)
[2023-02-18] MEDS: GABAPENTIN 100 MG CAPSULE PO SCH ×3 (11:27→22:25)
[2023-02-18] MEDS: ACETAMINOPHEN 1000 MG/100 ML BAG IVPB PRN ×2 (16:56→23:50)
[2023-02-18] MEDS ORDERED: INSULIN (NOVOLOG) ASPART 100 UNITS/ML 10ML VIAL ONE (21:27)
[2023-02-18] MEDS ORDERED: LIDOCAINE PATCH REMOVAL MC ONE (22:00)
[2023-02-18] MEDS: CEFTRIAXONE 1 GM in DEXTROSE 5%-WATER - 50 ML IVPB SCH (22:25)
[2023-02-18] MEDS: CHLORHEXIDINE GLUCONATE 4% CLEANSER FOR DECOLONIZATION TP SCH (22:25)
[2023-02-19] MEDS: hydrALAZINE HCL 20 MG/ML VIAL IVPUSH PRN ×3 (00:30→22:05)
[2023-02-19] MEDS: methylPREDNISolone NA SUCC 40 MG/1 ML VIAL IVPUSH SCH ×3 (01:42→17:18)
[2023-02-19] MEDS: GABAPENTIN 100 MG CAPSULE PO SCH ×3 (05:24→21:49)
[2023-02-19] MEDS: INSULIN SLIDING SCALE (NOVOLOG) 1 VIAL SQ SCH ×4 (06:41→21:50)
[2023-02-19 07:29] LABS: HEMATOCRIT 42.9 % (35.4-49); HEMOGLOBIN 13.9 GM/dL (11.7-16.9); MCHC 32.3 g/dl (32.0-35.9); MEAN CELL VOLUME 89.8 fl (80-96); MEAN PLT VOLUME 7.4 fl (7.5-11.1); PLATELET COUNT 376 10^3/uL (134-434); RBC 4.78 M/mm3 (4.00-5.60); RDW 16.4 % (11.9-15.9); WHITE BLOOD COUNT 10.7 K/mm3 (4.0-10.0)
[2023-02-19] MEDS: ALBUTEROL SO4 2.5/IPRATROPIUM 0.5 INH SOL 3 ML VIAL.NEB. NEB SCH ×4 (07:40→19:19)
[2023-02-19 07:47] LABS: POTASSIUM 5.2 mmol/L (3.5-5.1)
[2023-02-19 07:50] LABS: ALBUMIN 3.2 g/dl (3.4-5.0)
[2023-02-19 07:51] LABS: BLOOD UREA NITROGEN 22.1 mg/dL (7-18); CALCIUM 8.5 mg/dL (8.5-10.1)
[2023-02-19 07:53] LABS: CREATININE 0.9 mg/dL (0.55-1.3)
[2023-02-19 07:55] LABS: BILIRUBIN,TOTAL 0.3 mg/dL (0.2-1); TOT PROT 7.6 g/dl (6.4-8.2)
[2023-02-19] MEDS: NIFEdipine E.R. 30 MG TABLET PO SCH ×2 (08:23→09:46)
[2023-02-19] MEDS: LOSARTAN 50MG/HCTZ 12.5MG 1 TAB PO SCH ×2 (08:24→09:46)
[2023-02-19] MEDS: AZITHROMYCIN IVPB 250 MG in DEXTROSE 5%-WATER - 250 ML IVPB SCH (09:45)
[2023-02-19] MEDS: MUPIROCIN 2% TOPICAL OINTMENT FOR DECOLONIZATION NS SCH ×2 (09:45→21:50)
[2023-02-19] MEDS: CYCLOBENZAPRINE HCL 10 MG TABLET (FP) PO SCH ×2 (09:45→21:49)
[2023-02-19] MEDS: ENOXAPARIN NA (PORCINE) 40 MG/0.4 ML DISP.SYRIN SQ SCH ×2 (09:45→21:49)
[2023-02-19] MEDS ORDERED: INSULIN (NOVOLOG) ASPART 100 UNITS/ML 10ML VIAL ONE ×3 (11:16→16:55)
[2023-02-19] MEDS: CEFTRIAXONE 1 GM in DEXTROSE 5%-WATER - 50 ML IVPB SCH (21:50)
[2023-02-19] MEDS: CHLORHEXIDINE GLUCONATE 4% CLEANSER FOR DECOLONIZATION TP SCH (21:50)
[2023-02-19] MEDS ORDERED: LABETALOL HCL 5 MG/1 ML (100MG/20 ML VIAL) IVPUSH ONE (23:20)
[2023-02-20] MEDS: methylPREDNISolone NA SUCC 40 MG/1 ML VIAL IVPUSH SCH ×2 (01:23→09:10)
[2023-02-20] MEDS: GABAPENTIN 100 MG CAPSULE PO SCH ×3 (05:05→21:15)
[2023-02-20] MEDS: INSULIN SLIDING SCALE (NOVOLOG) 1 VIAL SQ SCH ×5 (06:07→21:14)
[2023-02-20 07:04] LABS: HEMATOCRIT 41.3 % (35.4-49); HEMOGLOBIN 13.3 GM/dL (11.7-16.9); MCH 28.7 pg (25.7-33.7); MCHC 32.2 g/dl (32.0-35.9); MEAN CELL VOLUME 89.3 fl (80-96); MEAN PLT VOLUME 7.9 fl (7.5-11.1); PLATELET COUNT 375 10^3/uL (134-434); RBC 4.63 M/mm3 (4.00-5.60); RDW 16.4 % (11.9-15.9); WHITE BLOOD COUNT 10.6 K/mm3 (4.0-10.0)
[2023-02-20 07:20] LABS: POTASSIUM 5.1 mmol/L (3.5-5.1)
[2023-02-20 07:21] LABS: CALCIUM 8.2 mg/dL (8.5-10.1)
[2023-02-20 07:22] LABS: ALBUMIN 2.9 g/dl (3.4-5.0); BLOOD UREA NITROGEN 31.9 mg/dL (7-18)
[2023-02-20 07:25] LABS: CREATININE 1.2 mg/dL (0.55-1.3)
[2023-02-20 07:27] LABS: BILIRUBIN,TOTAL 0.2 mg/dL (0.2-1)
[2023-02-20] MEDS: ALBUTEROL SO4 2.5/IPRATROPIUM 0.5 INH SOL 3 ML VIAL.NEB. NEB SCH ×4 (08:30→20:57)
[2023-02-20] MEDS: NIFEdipine E.R. 30 MG TABLET PO SCH (09:09)
[2023-02-20] MEDS: ENOXAPARIN NA (PORCINE) 40 MG/0.4 ML DISP.SYRIN SQ SCH ×2 (09:09→21:15)
[2023-02-20] MEDS: MUPIROCIN 2% TOPICAL OINTMENT FOR DECOLONIZATION NS SCH ×2 (09:09→21:15)
[2023-02-20] MEDS: CYCLOBENZAPRINE HCL 10 MG TABLET (FP) PO SCH ×2 (09:10→21:15)
[2023-02-20] MEDS: LOSARTAN 50MG/HCTZ 12.5MG 1 TAB PO SCH (09:10)
[2023-02-20] MEDS ORDERED: INSULIN (NOVOLOG) ASPART 100 UNITS/ML 10ML VIAL ONE (21:08)
[2023-02-20] MEDS: CHLORHEXIDINE GLUCONATE 4% CLEANSER FOR DECOLONIZATION TP SCH (21:15)
[2023-02-20] MEDS: CEFTRIAXONE 1 GM in DEXTROSE 5%-WATER - 50 ML IVPB SCH (21:15)
[2023-02-21] MEDS: GABAPENTIN 100 MG CAPSULE PO SCH ×3 (06:04→21:36)
[2023-02-21] MEDS: INSULIN SLIDING SCALE (NOVOLOG) 1 VIAL SQ SCH ×4 (06:04→23:17)
[2023-02-21 06:59] LABS: HEMATOCRIT 39.5 % (35.4-49); HEMOGLOBIN 13.6 GM/dL (11.7-16.9); MCH 29.9 pg (25.7-33.7); MCHC 34.4 g/dl (32.0-35.9); MEAN CELL VOLUME 86.9 fl (80-96); MEAN PLT VOLUME 7.5 fl (7.5-11.1); PLATELET COUNT 337 10^3/uL (134-434); RBC 4.54 M/mm3 (4.00-5.60); RDW 16.4 % (11.9-15.9); WHITE BLOOD COUNT 10.7 K/mm3 (4.0-10.0)
[2023-02-21] MEDS: ALBUTEROL SO4 2.5/IPRATROPIUM 0.5 INH SOL 3 ML VIAL.NEB. NEB SCH ×4 (08:50→20:05)
[2023-02-21] MEDS: CYCLOBENZAPRINE HCL 10 MG TABLET (FP) PO SCH ×2 (09:27→21:36)
[2023-02-21] MEDS: LOSARTAN 50MG/HCTZ 12.5MG 1 TAB PO SCH (09:27)
[2023-02-21] MEDS: predniSONE 20 MG TABLET (UD) PO SCH (09:27)
[2023-02-21] MEDS: NIFEdipine E.R. 30 MG TABLET PO SCH (09:27)
[2023-02-21] MEDS: MUPIROCIN 2% TOPICAL OINTMENT FOR DECOLONIZATION NS SCH (09:28)
[2023-02-21] MEDS: ENOXAPARIN NA (PORCINE) 40 MG/0.4 ML DISP.SYRIN SQ SCH ×2 (09:28→21:36)
[2023-02-21] MEDS: ACETAMINOPHEN WITH CODEINE 300MG/30MG TABLET PO PRN ×2 (12:46→21:05)
[2023-02-21] MEDS: CEFTRIAXONE 1 GM in DEXTROSE 5%-WATER - 50 ML IVPB SCH (21:40)
[2023-02-21] MEDS: CHLORHEXIDINE GLUCONATE 4% CLEANSER FOR DECOLONIZATION TP SCH (23:17)
[2023-02-22] MEDS ORDERED: morphine CARPU-JECT 2 MG/1 ML DISP.SYRIN IVPUSH ONE (01:18)
[2023-02-22] MEDS: GABAPENTIN 100 MG CAPSULE PO SCH ×3 (06:43→21:16)
[2023-02-22] MEDS: INSULIN SLIDING SCALE (NOVOLOG) 1 VIAL SQ SCH ×4 (06:43→21:19)
[2023-02-22 07:22] LABS: BASO % 0.5 % (0-2.0); EOS % 1.2 % (0-4.5); HEMATOCRIT 38.8 % (35.4-49); HEMOGLOBIN 12.8 GM/dL (11.7-16.9); LYMPH % 23.7 % (8-40); MCH 29.3 pg (25.7-33.7); MCHC 33.1 g/dl (32.0-35.9); MEAN CELL VOLUME 88.4 fl (80-96); MEAN PLT VOLUME 7.6 fl (7.5-11.1); MONO % 8.7 % (3.8-10.2); NEUT % 65.9 % (42.8-82.8); PLATELET COUNT 317 10^3/uL (134-434); RBC 4.39 M/mm3 (4.00-5.60); WHITE BLOOD COUNT 10.9 K/mm3 (4.0-10.0)
[2023-02-22 07:42] LABS: POTASSIUM 4.3 mmol/L (3.5-5.1)
[2023-02-22 07:50] LABS: BLOOD UREA NITROGEN 30.9 mg/dL (7-18); CALCIUM 7.5 mg/dL (8.5-10.1)
[2023-02-22 07:51] LABS: ALBUMIN 2.9 g/dl (3.4-5.0)
[2023-02-22 07:55] LABS: BILIRUBIN,TOTAL 0.5 mg/dL (0.2-1); TOT PROT 6.6 g/dl (6.4-8.2)
[2023-02-22] MEDS: ALBUTEROL SO4 2.5/IPRATROPIUM 0.5 INH SOL 3 ML VIAL.NEB. NEB SCH ×4 (08:07→20:05)
[2023-02-22] MEDS: predniSONE 20 MG TABLET (UD) PO SCH (09:11)
[2023-02-22] MEDS: LOSARTAN 50MG/HCTZ 12.5MG 1 TAB PO SCH (09:11)
[2023-02-22] MEDS: ENOXAPARIN NA (PORCINE) 40 MG/0.4 ML DISP.SYRIN SQ SCH ×2 (09:11→21:16)
[2023-02-22] MEDS: NIFEdipine E.R. 30 MG TABLET PO SCH (09:11)
[2023-02-22] MEDS: CYCLOBENZAPRINE HCL 10 MG TABLET (FP) PO SCH ×2 (09:12→21:16)
[2023-02-22] MEDS: ACETAMINOPHEN WITH CODEINE 300MG/30MG TABLET PO PRN ×2 (09:12→20:13)
[2023-02-22] MEDS: CHLORHEXIDINE GLUCONATE 4% CLEANSER FOR DECOLONIZATION TP SCH (21:10)
[2023-02-22] MEDS: CEFTRIAXONE 1 GM in DEXTROSE 5%-WATER - 50 ML IVPB SCH (21:16)
[2023-02-22] MEDS ORDERED: MELATONIN 5 MG TABLETS PO ONE (22:27)
[2023-02-23] MEDS: GABAPENTIN 100 MG CAPSULE PO SCH ×2 (06:18→13:15)
[2023-02-23] MEDS: INSULIN SLIDING SCALE (NOVOLOG) 1 VIAL SQ SCH ×3 (06:20→16:34)
[2023-02-23] MEDS: ALBUTEROL SO4 2.5/IPRATROPIUM 0.5 INH SOL 3 ML VIAL.NEB. NEB SCH ×3 (09:00→15:50)
[2023-02-23] MEDS: NIFEdipine E.R. 30 MG TABLET PO SCH (09:19)
[2023-02-23] MEDS: ENOXAPARIN NA (PORCINE) 40 MG/0.4 ML DISP.SYRIN SQ SCH (09:19)
[2023-02-23] MEDS: CYCLOBENZAPRINE HCL 10 MG TABLET (FP) PO SCH (09:19)
[2023-02-23] MEDS: ACETAMINOPHEN WITH CODEINE 300MG/30MG TABLET PO PRN ×2 (09:20→17:50)
[2023-02-23] MEDS: predniSONE 20 MG TABLET (UD) PO SCH (09:20)
[2023-02-23] MEDS: LOSARTAN 50MG/HCTZ 12.5MG 1 TAB PO SCH (09:22)
[2023-02-23 15:20] VITALS: BP 141/85; PULSE 80; RESP 24; TEMP 98
== END 2023-02-23 18:10 | disposition home or self-care (01) | DRG 189 ==
LOC: JER 18:27 → JERBED 22:03 → JICU 02-16 20:01
PROVIDERS: ADMIT Internal Medicine; ATTEND Internal Medicine
DX: J96.02 Acute respiratory failure with hypercapnia (principal); E66.2 Morbid (severe) obesity with alveolar hypoventilation; Z68.45 Body mass index [BMI] 70 or greater, adult; I10 Essential (primary) hypertension; I16.0 Hypertensive urgency; E11.9 Type 2 diabetes mellitus without complications; R74.01 Elevation of levels of liver transaminase levels; J06.9 Acute upper respiratory infection, unspecified; F17.210 Nicotine dependence, cigarettes, uncomplicated; J98.01 Acute bronchospasm; J96.01 Acute respiratory failure with hypoxia
CPT/HCPCS: 0241U-QW; 36415; 36600; 71045-TC-FY; 80053; 81003; 82803; 82962; 83036; 83735; 83880; 84100; 84484; 85025; 85027; 85379; 85610; 85730; 87040; 87086; 87899; 93005; 93010; 93306-TC; 93970-TC; 94640; 94660; 94761; 97116-GP; 97162-GP; 99285-25; J1644

== ENCOUNTER 2023-04-01 18:02 | Inpatient (IN) | payer OTHER ==
[2023-04-01 18:36] VITALS: BMI 67.0
[2023-04-01 19:37] LABS: BASO % 0.7 % (0-2.0); EOS % 2.4 % (0-4.5); LYMPH % 17.6 % (8-40); MCH 27.6 pg (25.7-33.7); MCHC 31.3 g/dl (32.0-35.9); MEAN CELL VOLUME 88.4 fl (80-96); MEAN PLT VOLUME 7.4 fl (7.5-11.1); MONO % 10.2 % (3.8-10.2); NEUT % 69.1 % (42.8-82.8); PLATELET COUNT 318 10^3/uL (134-434); RBC 3.96 M/mm3 (4.00-5.60); RDW 16.2 % (11.9-15.9); WHITE BLOOD COUNT 8.9 K/mm3 (4.0-10.0)
[2023-04-01 19:40] LABS: INR 1.08 (0.83-1.09); PROTHROMBIN TIME (PATIENT) 12.5 SEC (9.7-13.0)
[2023-04-01 19:43] LABS: ACTIVATED PTT 30.6 SECONDS (25.2-36.5)
[2023-04-01 19:45] LABS: VENOUS BASE EXCESS 13.2 mmol/L (-2-2); VENOUS O2 SATURATION 96.2 % (70-80); VENOUS PH 7.349 (7.310-7.410)
[2023-04-01 19:46] LABS: VENOUS PCO2 78.2 mmHg (38-52)
[2023-04-01] MEDS ORDERED: ALBUTEROL SO4 2.5/IPRATROPIUM 0.5 INH SOL 3 ML VIAL.NEB. NEB ONE ×2 (19:51→20:08)
[2023-04-01 20:01] LABS: POTASSIUM 4.4 mmol/L (3.5-5.1)
[2023-04-01 20:04] LABS: BLOOD UREA NITROGEN 13.4 mg/dL (7-18); CALCIUM 8.6 mg/dL (8.5-10.1); MAGNESIUM 2.3 mg/dL (1.8-2.4)
[2023-04-01 20:07] LABS: CREATININE 0.8 mg/dL (0.55-1.3)
[2023-04-01 20:09] LABS: BILIRUBIN,TOTAL 0.5 mg/dL (0.2-1); TOT PROT 7.2 g/dl (6.4-8.2)
[2023-04-01 20:13] LABS: N-TERMINAL BNP 75.9 pg/ml (5-125)
[2023-04-01] MEDS ORDERED: FUROSEMIDE 100 MG/10 ML INJECTABLE VIAL IVPB ONE (21:14)
[2023-04-01] MEDS ORDERED: FUROSEMIDE 40 MG/4 ML INJECTABLE VIAL ONE (21:22)
[2023-04-01 23:03] LABS: URINE APPEARANCE CLEAR; URINE BILIRUBIN NEGATIVE (NEGATIVE); URINE COLOR YELLOW; URINE GLUCOSE (UA) NEGATIVE (NEGATIVE); URINE KETONE NEGATIVE (NEGATIVE); URINE LEUK ESTERASE NEGATIVE (NEGATIVE); URINE NITRITE NEGATIVE (NEGATIVE); URINE PROTEIN NEGATIVE (NEGATIVE); URINE UROBILINOGEN 0.2 mg/dL (0.2-1.0)
[2023-04-01 23:08] LABS: COCAINE, UR NEGATIVE (NEGATIVE); OPIATES, URI NEGATIVE (NEGATIVE); URINE BARBITURATES NEGATIVE (NEGATIVE)
[2023-04-01 23:09] LABS: METHADONE, UR NEGATIVE (NEGATIVE); PHENCYCLIDINE,URINE NEGATIVE (NEGATIVE)
[2023-04-01 23:10] LABS: URINE AMPHETAMINES NEGATIVE (NEGATIVE); URINE BENZODIAZEPINES NEGATIVE (NEGATIVE)
[2023-04-02] MEDS ORDERED: ENOXAPARIN NA (PORCINE) 40 MG/0.4 ML DISP.SYRIN SQ ONE (01:15)
[2023-04-02] MEDS: ENOXAPARIN NA (PORCINE) 40 MG/0.4 ML DISP.SYRIN SQ SCH ×2 (01:18→13:12)
[2023-04-02] MEDS: INSULIN SLIDING SCALE (NOVOLOG) 1 VIAL SQ SCH ×5 (07:31→21:05)
[2023-04-02 08:19] LABS: BASO % 0.3 % (0-2.0); EOS % 1.5 % (0-4.5); HEMOGLOBIN 12.9 GM/dL (11.7-16.9); LYMPH % 15.7 % (8-40); MCH 28.9 pg (25.7-33.7); MCHC 32.3 g/dl (32.0-35.9); MEAN CELL VOLUME 89.3 fl (80-96); MEAN PLT VOLUME 7.6 fl (7.5-11.1); MONO % 5.9 % (3.8-10.2); NEUT % 76.6 % (42.8-82.8); PLATELET COUNT 315 10^3/uL (134-434); RBC 4.48 M/mm3 (4.00-5.60); RDW 16.2 % (11.9-15.9); WHITE BLOOD COUNT 8.5 K/mm3 (4.0-10.0)
[2023-04-02 08:38] LABS: POTASSIUM 4.5 mmol/L (3.5-5.1)
[2023-04-02 08:40] LABS: CALCIUM 8.6 mg/dL (8.5-10.1)
[2023-04-02 08:41] LABS: ALBUMIN 3.3 g/dl (3.4-5.0); BLOOD UREA NITROGEN 11.4 mg/dL (7-18); MAGNESIUM 2.1 mg/dL (1.8-2.4)
[2023-04-02 08:44] LABS: CREATININE 0.7 mg/dL (0.55-1.3); PHOSPHOROUS 4.5 mg/dL (2.5-4.9)
[2023-04-02 08:45] LABS: BILIRUBIN,TOTAL 0.4 mg/dL (0.2-1); TOT PROT 8.1 g/dl (6.4-8.2)
[2023-04-02] MEDS ORDERED: FUROSEMIDE 40 MG/4 ML INJECTABLE VIAL ONE ×2 (09:41→15:07)
[2023-04-02] MEDS ORDERED: FUROSEMIDE 40 MG/4 ML INJECTABLE VIAL IVPUSH SCH (10:00)
[2023-04-02] MEDS ORDERED: INSULIN (NOVOLOG) ASPART 100 UNITS/ML 10ML VIAL ONE (12:19)
[2023-04-02] MEDS ORDERED: ALBUTEROL SO4 2.5/IPRATROPIUM 0.5 INH SOL 3 ML VIAL.NEB. NEB ONE (12:28)
[2023-04-02] MEDS ORDERED: LOSARTAN POTASSIUM 25 MG TABLET ONE (15:07)
[2023-04-02] MEDS: LOSARTAN POTASSIUM 25 MG TABLET PO SCH (15:08)
[2023-04-02] MEDS: FUROSEMIDE 40 MG/4 ML INJECTABLE VIAL IVPUSH SCH (15:09)
[2023-04-02] MEDS: ACETAMINOPHEN 500 MG TABLET (FP) PO PRN (18:04)
[2023-04-02] MEDS ORDERED: KETOROLAC TROMETHAMINE 30 MG/1 ML VIAL IM ONE (23:43)
[2023-04-03] MEDS ORDERED: KETOROLAC TROMETHAMINE 30 MG/1 ML VIAL IM ONE (00:15)
[2023-04-03] MEDS: ENOXAPARIN NA (PORCINE) 40 MG/0.4 ML DISP.SYRIN SQ SCH ×2 (00:33→13:16)
[2023-04-03] MEDS: FUROSEMIDE 40 MG/4 ML INJECTABLE VIAL IVPUSH SCH ×2 (06:55→13:16)
[2023-04-03] MEDS: INSULIN SLIDING SCALE (NOVOLOG) 1 VIAL SQ SCH ×4 (06:57→21:23)
[2023-04-03 07:41] LABS: BASO % 0.5 % (0-2.0); EOS % 2.9 % (0-4.5); HEMATOCRIT 33.8 % (35.4-49); HEMOGLOBIN 11.1 GM/dL (11.7-16.9); LYMPH % 18.7 % (8-40); MCH 28.7 pg (25.7-33.7); MCHC 32.8 g/dl (32.0-35.9); MEAN CELL VOLUME 87.5 fl (80-96); MEAN PLT VOLUME 7.6 fl (7.5-11.1); MONO % 8.8 % (3.8-10.2); NEUT % 69.1 % (42.8-82.8); PLATELET COUNT 308 10^3/uL (134-434); RBC 3.86 M/mm3 (4.00-5.60); RDW 16.1 % (11.9-15.9); WHITE BLOOD COUNT 7.4 K/mm3 (4.0-10.0)
[2023-04-03 07:54] LABS: POTASSIUM 3.9 mmol/L (3.5-5.1)
[2023-04-03 08:05] LABS: CALCIUM 8.4 mg/dL (8.5-10.1)
[2023-04-03 08:08] LABS: CREATININE 0.8 mg/dL (0.55-1.3)
[2023-04-03 08:09] LABS: BILIRUBIN,TOTAL 0.5 mg/dL (0.2-1); TOT PROT 7.2 g/dl (6.4-8.2)
[2023-04-03] MEDS: LOSARTAN POTASSIUM 25 MG TABLET PO SCH (10:12)
[2023-04-03] MEDS: ACETAMINOPHEN 500 MG TABLET (FP) PO PRN (13:16)
[2023-04-03] MEDS: KETOROLAC TROMETHAMINE 30 MG/1 ML VIAL IVPUSH PRN (16:09)
[2023-04-03] MEDS ORDERED: INSULIN (NOVOLOG) ASPART 100 UNITS/ML 10ML VIAL ONE (21:21)
[2023-04-04] MEDS: ENOXAPARIN NA (PORCINE) 40 MG/0.4 ML DISP.SYRIN SQ SCH ×2 (00:02→13:25)
[2023-04-04] MEDS: FUROSEMIDE 40 MG/4 ML INJECTABLE VIAL IVPUSH SCH ×2 (05:40→13:23)
[2023-04-04] MEDS: KETOROLAC TROMETHAMINE 30 MG/1 ML VIAL IVPUSH PRN ×2 (06:01→11:09)
[2023-04-04] MEDS: INSULIN SLIDING SCALE (NOVOLOG) 1 VIAL SQ SCH ×4 (06:02→22:14)
[2023-04-04 07:21] LABS: POTASSIUM 4.2 mmol/L (3.5-5.1)
[2023-04-04 07:26] LABS: CALCIUM 8.1 mg/dL (8.5-10.1)
[2023-04-04 07:27] LABS: ALBUMIN 3.2 g/dl (3.4-5.0); MAGNESIUM 2.1 mg/dL (1.8-2.4)
[2023-04-04 07:30] LABS: CREATININE 0.8 mg/dL (0.55-1.3); PHOSPHOROUS 4.1 mg/dL (2.5-4.9)
[2023-04-04 07:31] LABS: BILIRUBIN,TOTAL 0.5 mg/dL (0.2-1); TOT PROT 7.5 g/dl (6.4-8.2)
[2023-04-04] MEDS: LOSARTAN POTASSIUM 25 MG TABLET PO SCH (09:56)
[2023-04-04] MEDS: ACETAMINOPHEN 500 MG TABLET (FP) PO PRN (20:01)
[2023-04-05] MEDS: ENOXAPARIN NA (PORCINE) 40 MG/0.4 ML DISP.SYRIN SQ SCH ×2 (00:56→12:22)
[2023-04-05] MEDS: KETOROLAC TROMETHAMINE 30 MG/1 ML VIAL IVPUSH PRN ×2 (03:13→12:21)
[2023-04-05] MEDS: INSULIN SLIDING SCALE (NOVOLOG) 1 VIAL SQ SCH ×4 (06:31→21:08)
[2023-04-05] MEDS: FUROSEMIDE 40 MG/4 ML INJECTABLE VIAL IVPUSH SCH ×2 (06:32→16:55)
[2023-04-05 07:44] LABS: BASO % 0.4 % (0-2.0); EOS % 3.7 % (0-4.5); HEMATOCRIT 32.2 % (35.4-49); HEMOGLOBIN 10.7 GM/dL (11.7-16.9); LYMPH % 18.2 % (8-40); MCH 28.5 pg (25.7-33.7); MCHC 33.2 g/dl (32.0-35.9); MEAN CELL VOLUME 85.7 fl (80-96); MEAN PLT VOLUME 7.4 fl (7.5-11.1); MONO % 11.5 % (3.8-10.2); NEUT % 66.2 % (42.8-82.8); PLATELET COUNT 285 10^3/uL (134-434); RBC 3.76 M/mm3 (4.00-5.60); RDW 16.3 % (11.9-15.9); WHITE BLOOD COUNT 7.6 K/mm3 (4.0-10.0)
[2023-04-05 07:58] LABS: POTASSIUM 3.9 mmol/L (3.5-5.1)
[2023-04-05 08:05] LABS: BLOOD UREA NITROGEN 17.1 mg/dL (7-18); CALCIUM 7.6 mg/dL (8.5-10.1)
[2023-04-05 08:06] LABS: ALBUMIN 2.9 g/dl (3.4-5.0); CREATININE 0.8 mg/dL (0.55-1.3); MAGNESIUM 2.1 mg/dL (1.8-2.4); PHOSPHOROUS 3.7 mg/dL (2.5-4.9)
[2023-04-05 08:08] LABS: BILIRUBIN,TOTAL 0.5 mg/dL (0.2-1); TOT PROT 6.8 g/dl (6.4-8.2)
[2023-04-05] MEDS: LOSARTAN POTASSIUM 25 MG TABLET PO SCH (09:33)
[2023-04-05] MEDS: ACETAMINOPHEN 500 MG TABLET (FP) PO PRN ×2 (16:57→23:15)
[2023-04-05] MEDS ORDERED: INSULIN (NOVOLOG) ASPART 100 UNITS/ML 10ML VIAL ONE (20:57)
[2023-04-06] MEDS ORDERED: KETOROLAC TROMETHAMINE 30 MG/1 ML VIAL IM ONE (01:31)
[2023-04-06] MEDS: ENOXAPARIN NA (PORCINE) 40 MG/0.4 ML DISP.SYRIN SQ SCH ×2 (01:39→13:32)
[2023-04-06] MEDS: INSULIN SLIDING SCALE (NOVOLOG) 1 VIAL SQ SCH ×4 (06:27→22:04)
[2023-04-06] MEDS: FUROSEMIDE 40 MG/4 ML INJECTABLE VIAL IVPUSH SCH ×2 (07:07→13:32)
[2023-04-06] MEDS: LOSARTAN POTASSIUM 25 MG TABLET PO SCH (09:36)
[2023-04-06] MEDS: ACETAMINOPHEN 500 MG TABLET (FP) PO PRN ×2 (09:40→17:32)
[2023-04-07] MEDS: KETOROLAC TROMETHAMINE 15 MG/ML VIAL IVPUSH ONE ×2 (02:00→02:03)
[2023-04-07] MEDS: ENOXAPARIN NA (PORCINE) 40 MG/0.4 ML DISP.SYRIN SQ SCH ×2 (02:03→13:29)
[2023-04-07] MEDS: FUROSEMIDE 40 MG/4 ML INJECTABLE VIAL IVPUSH SCH ×2 (06:01→13:29)
[2023-04-07] MEDS: ACETAMINOPHEN 500 MG TABLET (FP) PO PRN ×3 (06:01→22:28)
[2023-04-07] MEDS: INSULIN SLIDING SCALE (NOVOLOG) 1 VIAL SQ SCH ×4 (06:54→22:26)
[2023-04-07] MEDS: LOSARTAN POTASSIUM 25 MG TABLET PO SCH (10:45)
[2023-04-07 12:34] LABS: BASO % 0.7 % (0-2.0); EOS % 4.1 % (0-4.5); HEMATOCRIT 33.9 % (35.4-49); LYMPH % 19.5 % (8-40); MCH 28.1 pg (25.7-33.7); MCHC 32.5 g/dl (32.0-35.9); MEAN CELL VOLUME 86.4 fl (80-96); MEAN PLT VOLUME 7.4 fl (7.5-11.1); MONO % 10.8 % (3.8-10.2); NEUT % 64.9 % (42.8-82.8); PLATELET COUNT 290 10^3/uL (134-434); RBC 3.92 M/mm3 (4.00-5.60); RDW 16.3 % (11.9-15.9); WHITE BLOOD COUNT 7.5 K/mm3 (4.0-10.0)
[2023-04-07 13:00] LABS: POTASSIUM 4.3 mmol/L (3.5-5.1)
[2023-04-07 13:02] LABS: ALBUMIN 3.1 g/dl (3.4-5.0); BLOOD UREA NITROGEN 16.3 mg/dL (7-18); CALCIUM 8.1 mg/dL (8.5-10.1); MAGNESIUM 2.4 mg/dL (1.8-2.4)
[2023-04-07 13:05] LABS: CREATININE 0.7 mg/dL (0.55-1.3)
[2023-04-07 13:07] LABS: BILIRUBIN,TOTAL 0.3 mg/dL (0.2-1); TOT PROT 7.3 g/dl (6.4-8.2)
[2023-04-07] MEDS: KETOROLAC TROMETHAMINE 30 MG/1 ML VIAL IM PRN (18:07)
[2023-04-07] MEDS: LIDOCAINE 4% PATCH TP SCH (18:21)
[2023-04-07] MEDS: LIDOCAINE PATCH REMOVAL MC SCH (22:26)
[2023-04-08] MEDS: KETOROLAC TROMETHAMINE 30 MG/1 ML VIAL IM PRN ×3 (00:51→20:00)
[2023-04-08] MEDS: ENOXAPARIN NA (PORCINE) 40 MG/0.4 ML DISP.SYRIN SQ SCH ×2 (00:54→14:04)
[2023-04-08] MEDS: FUROSEMIDE 40 MG/4 ML INJECTABLE VIAL IVPUSH SCH ×2 (06:34→14:04)
[2023-04-08] MEDS: INSULIN SLIDING SCALE (NOVOLOG) 1 VIAL SQ SCH ×4 (06:34→22:58)
[2023-04-08 09:39] LABS: POTASSIUM 3.9 mmol/L (3.5-5.1)
[2023-04-08 09:42] LABS: CALCIUM 7.9 mg/dL (8.5-10.1)
[2023-04-08 09:43] LABS: BLOOD UREA NITROGEN 14.4 mg/dL (7-18); MAGNESIUM 2.1 mg/dL (1.8-2.4)
[2023-04-08 09:46] LABS: CREATININE 0.7 mg/dL (0.55-1.3); PHOSPHOROUS 3.3 mg/dL (2.5-4.9)
[2023-04-08 09:47] LABS: BILIRUBIN,TOTAL 0.7 mg/dL (0.2-1)
[2023-04-08 09:48] LABS: TOT PROT 7.3 g/dl (6.4-8.2)
[2023-04-08] MEDS: ACETAMINOPHEN 500 MG TABLET (FP) PO PRN (09:50)
[2023-04-08] MEDS: LOSARTAN POTASSIUM 25 MG TABLET PO SCH (09:50)
[2023-04-08] MEDS: LIDOCAINE 4% PATCH TP SCH (11:50)
[2023-04-08] MEDS ORDERED: ACETAMINOPHEN 1000 MG/100 ML BAG IVPB PRN (11:54)
[2023-04-08] MEDS: traMADol HCL 50 MG TABLET PO PRN (14:19)
[2023-04-09] MEDS: traMADol HCL 50 MG TABLET PO PRN ×2 (01:36→13:40)
[2023-04-09] MEDS: ENOXAPARIN NA (PORCINE) 40 MG/0.4 ML DISP.SYRIN SQ SCH ×2 (01:36→13:40)
[2023-04-09] MEDS: LIDOCAINE PATCH REMOVAL MC SCH (01:36)
[2023-04-09] MEDS: KETOROLAC TROMETHAMINE 30 MG/1 ML VIAL IM PRN ×3 (05:31→18:48)
[2023-04-09] MEDS: FUROSEMIDE 40 MG/4 ML INJECTABLE VIAL IVPUSH SCH ×2 (05:31→13:41)
[2023-04-09] MEDS: INSULIN SLIDING SCALE (NOVOLOG) 1 VIAL SQ SCH ×4 (06:20→23:42)
[2023-04-09] MEDS: LOSARTAN POTASSIUM 25 MG TABLET PO SCH (10:12)
[2023-04-09] MEDS: LIDOCAINE 4% PATCH TP SCH (10:12)
[2023-04-09] MEDS: ACETAMINOPHEN 1000 MG/100 ML BAG IVPB PRN (18:49)
[2023-04-09] MEDS ORDERED: traMADol HCL 50 MG TABLET PO ONE (22:32)
[2023-04-10] MEDS: ACETAMINOPHEN 1000 MG/100 ML BAG IVPB PRN ×3 (00:32→13:41)
[2023-04-10] MEDS: KETOROLAC TROMETHAMINE 30 MG/1 ML VIAL IM PRN ×4 (00:32→21:09)
[2023-04-10] MEDS: ENOXAPARIN NA (PORCINE) 40 MG/0.4 ML DISP.SYRIN SQ SCH ×2 (00:33→13:39)
[2023-04-10] MEDS: LIDOCAINE PATCH REMOVAL MC SCH (01:26)
[2023-04-10] MEDS: FUROSEMIDE 40 MG/4 ML INJECTABLE VIAL IVPUSH SCH ×2 (06:08→13:39)
[2023-04-10] MEDS: INSULIN SLIDING SCALE (NOVOLOG) 1 VIAL SQ SCH ×4 (07:10→21:48)
[2023-04-10 09:15] LABS: EOS % 4.1 % (0-4.5); HEMATOCRIT 32.4 % (35.4-49); HEMOGLOBIN 10.2 GM/dL (11.7-16.9); LYMPH % 18.9 % (8-40); MCH 27.6 pg (25.7-33.7); MCHC 31.6 g/dl (32.0-35.9); MEAN CELL VOLUME 87.5 fl (80-96); MEAN PLT VOLUME 7.3 fl (7.5-11.1); MONO % 9.8 % (3.8-10.2); NEUT % 66.2 % (42.8-82.8); PLATELET COUNT 270 10^3/uL (134-434); WHITE BLOOD COUNT 6.1 K/mm3 (4.0-10.0)
[2023-04-10 09:26] LABS: POTASSIUM 3.9 mmol/L (3.5-5.1)
[2023-04-10 09:28] LABS: CALCIUM 7.9 mg/dL (8.5-10.1)
[2023-04-10 09:29] LABS: ALBUMIN 2.8 g/dl (3.4-5.0); BLOOD UREA NITROGEN 15.7 mg/dL (7-18); MAGNESIUM 2.2 mg/dL (1.8-2.4)
[2023-04-10 09:32] LABS: CREATININE 0.8 mg/dL (0.55-1.3); PHOSPHOROUS 3.5 mg/dL (2.5-4.9)
[2023-04-10 09:34] LABS: BILIRUBIN,TOTAL 0.3 mg/dL (0.2-1); TOT PROT 6.7 g/dl (6.4-8.2)
[2023-04-10] MEDS: LOSARTAN POTASSIUM 25 MG TABLET PO SCH (10:02)
[2023-04-10] MEDS: traMADol HCL 50 MG TABLET PO PRN ×2 (10:07→21:09)
[2023-04-10] MEDS: LIDOCAINE 4% PATCH TP SCH (10:09)
[2023-04-10 14:53] VITALS: RESP 18
[2023-04-10] MEDS ORDERED: ACETAMINOPHEN 325 MG TABLET (FP) PO ONE (23:39)
[2023-04-11] MEDS: ENOXAPARIN NA (PORCINE) 40 MG/0.4 ML DISP.SYRIN SQ SCH ×2 (00:04→12:59)
[2023-04-11] MEDS: LIDOCAINE PATCH REMOVAL MC SCH (02:03)
[2023-04-11] MEDS: KETOROLAC TROMETHAMINE 30 MG/1 ML VIAL IM PRN ×2 (06:12→12:59)
[2023-04-11] MEDS: FUROSEMIDE 40 MG/4 ML INJECTABLE VIAL IVPUSH SCH ×2 (06:14→14:38)
[2023-04-11] MEDS: INSULIN SLIDING SCALE (NOVOLOG) 1 VIAL SQ SCH ×2 (07:06→12:25)
[2023-04-11] MEDS: traMADol HCL 50 MG TABLET PO PRN (10:02)
[2023-04-11] MEDS: LOSARTAN POTASSIUM 25 MG TABLET PO SCH (10:02)
[2023-04-11] MEDS: LIDOCAINE 4% PATCH TP SCH (10:03)
[2023-04-11 10:50] VITALS: BP 160/70; PULSE 87; TEMP 97.4
== END 2023-04-11 15:47 | disposition home or self-care (01) | DRG 291 ==
LOC: JER 18:02 → JERBED 21:12 → J4W 04-02 20:12 → OBSVTOIN 04-05 09:46 → J5S 04-06 15:40
PROVIDERS: ADMIT Internal Medicine
DX: I11.0 Hypertensive heart disease with heart failure (principal); I50.33 Acute on chronic diastolic (congestive) heart failure; J96.22 Acute and chronic respiratory failure with hypercapnia; J96.21 Acute and chronic respiratory failure with hypoxia; Z68.44 Body mass index [BMI] 60.0-69.9, adult; E66.01 Morbid (severe) obesity due to excess calories; G47.33 Obstructive sleep apnea (adult) (pediatric); E11.9 Type 2 diabetes mellitus without complications; E87.70 Fluid overload, unspecified; M54.9 Dorsalgia, unspecified
CPT/HCPCS: 0241U-QW; 36415; 71045-TC-FY; 80053; 80307; 81003; 82803; 82962; 83036; 83735; 83880; 84100; 84484; 85025; 85610; 85730; 93005; 93010; 93970-TC; 94660; 94761; 97116-GP; 97161-GP; 99285-25; G0378